=== PATIENT | female | born 1960 | race Caucasian/White ===

== ENCOUNTER 2020-01-09 11:39 | Observation (INO) ==
[2020-01-09] MEDS ORDERED: NS 0.9% 1000 ml BAG 1,000 ML IV ONE (11:57)
[2020-01-09] MEDS ORDERED: Ondansetron 4 mg VIAL 2 MG/ML 2 ml VIAL IV ONE (11:57)
[2020-01-09 13:06] LABS: ABS Lymphocytes 0.5 10^3/ul (1.0-4.8); ABS Monocytes 0.1 10^3/ul (0-0.8); ABS Neutrophils 7.8 10^3/ul (1.5-7.7); Eosinophil % 0.2 %; Hematocrit 37 % (35-47); Lymphocyte % 6.1 %; Mean Corpuscular HGB Conc 33 g/dL (31-36); Mean Corpuscular Hemoglobin 25 pg (27-31); Mean Corpuscular Volume 78 fL (80-97); Mean Platelet Volume 9.5 fL (7.4-10.4); Nucleated Red Blood Cells % 0.2; Platelet Count 204 10^3/uL (150-450); Red Blood Count 4.71 10^6 /uL (3.70-4.87); Red Cell Distribution Width 15 % (10-15); White Blood Count 8.5 10^3/uL (3.5-10.8)
[2020-01-09 13:07] LABS: Urine Appearance Clear; Urine Bilirubin Negative (Negative); Urine Blood 1+ (Negative); Urine Color Straw; Urine Glucose Negative (Negative); Urine Ketones Trace (Negative); Urine Nitrite Negative (Negative); Urine Protein Negative (Negative); Urine Specific Gravity 1.011 (1.010-1.030); Urine Urobilinogen Negative (Negative)
[2020-01-09 13:19] LABS: ALT 32 U/L (7-52); AST 30 U/L (13-39); Albumin 4.4 g/dL (3.2-5.2); Albumin/Globulin Ratio 1.6 (1-3); Alkaline Phosphatase 82 U/L (34-104); Anion Gap 6 mmol/L (2-11); BUN/Creatinine Ratio 18.2 (8-20); Blood Urea Nitrogen 18 mg/dL (6-24); C Reactive Protein < 1.00 mg/L (<8.01); CO2 Carbon Dioxide 27 mmol/L (22-32); Calcium 9.2 mg/dL (8.6-10.3); Chloride 105 mmol/L (101-111); EGFR Non-African American 57.8 (>60); Globulin 2.8 g/dL (2-4); Glucose 136 mg/dL (70-100); Lipase 45 U/L (11.0-82.0); Magnesium 1.9 mg/dL (1.9-2.7); Potassium 3.8 mmol/L (3.5-5.0); Sodium 138 mmol/L (135-145); Total Protein 7.2 g/dL (6.4-8.9)
[2020-01-09 13:21] LABS: Urine Bacteria Absent (Absent); Urine Red Blood Cell 3+(>10/hpf) (Absent); Urine Squamous Epithelial Cell Present (Absent); Urine White Blood Cell Trace(0-5/hpf) (Absent)
[2020-01-09 13:24] LABS: HCG Pregnancy 3.23 mIU/mL
[2020-01-09] MEDS ORDERED: Morphine 2 MG/ML SYRINGE IV PRN (14:12)
[2020-01-09] MEDS ORDERED: Prochlorperazine 5 mg/ml 2 ml VIAL (10 mg) IV PRN (14:13)
[2020-01-09] MEDS ORDERED: Lactated Ringers 1000 ml BAG 1,000 ML IV SCH (15:00)
[2020-01-09] MEDS ORDERED: Ondansetron 4 mg VIAL 2 MG/ML 2 ml VIAL ONE (18:24)
[2020-01-09] MEDS ORDERED: Propofol 10 MG/ML 20 ML BTL ONE (18:24)
[2020-01-09] MEDS ORDERED: Dexamethasone IV 4 MG/ML VIAL 1 ml VIAL ONE (18:24)
[2020-01-09] MEDS ORDERED: fentaNYL 100 mcg/2 ml 50 MCG/ML VIAL ONE (18:24)
[2020-01-09] MEDS ORDERED: Lidocaine 2% PF 5 ML VIAL ONE (18:24)
[2020-01-09] MEDS ORDERED: Ketamine HCL 50 mg/ml 10 ml VIAL (500 MG) ONE (18:25)
[2020-01-09] MEDS ORDERED: Midazolam 5 mg/5 ml VIAL 1 mg/ml 5 ml VIAL (5 mg) ONE (18:25)
[2020-01-09] MEDS ORDERED: CEFTRIAXONE 1 GM/50 ML ONE (18:53)
[2020-01-09] MEDS ORDERED: [UNRECOGNIZED DRUG - OTHER] ONE (18:53)
[2020-01-09] MEDS ORDERED: Iohexol 180 (CONTRAST) 10 ML SDV IV ONE (19:06)
[2020-01-09] MEDS ORDERED: Naloxone 0.4 mg VIAL 0.4 mg/ml 1 ml VIAL IV PRN (20:42)
[2020-01-09] MEDS ORDERED: fentaNYL 100 mcg/2 ml 50 MCG/ML VIAL IV PRN (20:42)
[2020-01-09] MEDS ORDERED: Ondansetron 4 mg VIAL 2 MG/ML 2 ml VIAL IV PRN (20:42)
[2020-01-09 21:29] VITALS: BP 161/84
[2020-01-09] MEDS ORDERED: Heparin 5000 UNITS/ML 1 mL VIAL SUBCUT SCH (22:00)
== END 2020-01-09 21:46 | disposition home or self-care (01) ==
LOC: SSU 11:39 → ED 11:39 → SSU 16:06
PROVIDERS: ADMIT Internal Medicine; ATTEND Urology